=== PATIENT | female | born 1995 | race American Indian/Alaskan Native ===

== ENCOUNTER 2018-05-06 15:10 | Emergency (ER) | payer MEDICAID, OTHER ==
[2018-05-06 15:20] VITALS: BP 124/70
[2018-05-06] MEDS ORDERED: MOTRIN PO ONE (17:35)
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
[2018-05-06] MEDS ORDERED: ROBAXIN PO ONE (18:00)
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
== END 2018-05-06 18:54 | disposition home or self-care (01) ==
LOC: ED 15:10
DX: S16.1XXA Strain of muscle, fascia and tendon at neck level, initial encounter (principal); V49.49XA Driver injured in collision with other motor vehicles in traffic accident, initial encounter; Y93.89 Activity, other specified; Y92.89 Other specified places as the place of occurrence of the external cause; Y99.8 Other external cause status
CPT/HCPCS: 72125; 99283